=== PATIENT | male | born 1990 | race Caucasian/White ===

== ENCOUNTER 2017-08-25 21:16 | Emergency (ER) | payer OTHER ==
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
[2017-08-25 22:48] VITALS: BP 127/75
--- NOTE | 2017-08-26 07:10 | RAD ---
INDICATION: Left elbow injury, abrasion. TECHNIQUE: 2 views of the left elbow were obtained. FINDINGS: There is soft tissue swelling and air present in the posterior soft tissues adjacent to the visualized portion of the proximal ulna. The bones are normal alignment. No joint effusion or fracture is seen. IMPRESSION: SOFT TISSUE INJURY, NO FRACTURE IS SEEN.
--- NOTE | 2017-08-26 07:15 | RAD ---
INDICATION: Left elbow abrasion. TECHNIQUE: 2 views of the left forearm were obtained. FINDINGS: There is soft tissue swelling and air in the soft tissues adjacent to the posterior proximal diaphysis of the ulna. The bones are normal alignment. No fracture is seen. IMPRESSION: SOFT TISSUE SWELLING, NO FRACTURE IS SEEN.
--- NOTE | 2017-08-26 07:21 | RAD ---
INDICATION: Right lower leg injury. TECHNIQUE: 2 views of the right lower leg were obtained. FINDINGS: There is soft tissue swelling anterior to the proximal tibia. The bones are normal alignment. No fracture is seen. IMPRESSION: SOFT TISSUE SWELLING, NO FRACTURE IS SEEN.
== END 2017-08-25 22:50 | disposition home or self-care (01) ==
LOC: ED 21:16
DX: S89.91XA Unspecified injury of right lower leg, initial encounter (principal); S59.912A Unspecified injury of left forearm, initial encounter; S50.312A Abrasion of left elbow, initial encounter; W22.8XXA Striking against or struck by other objects, initial encounter; Y92.9 Unspecified place or not applicable; F17.210 Nicotine dependence, cigarettes, uncomplicated
CPT/HCPCS: 99283